=== PATIENT | male | born 1970 | race Caucasian/White ===

== ENCOUNTER 2016-07-25 08:06 | Emergency (ER) | payer MEDICARE, OTHER ==
[~2016-07-25 08:06] MED LIST: ALBUTEROL IN200 PUFF INH; BACITRACIN TP; BREO ELLIPTA 11 EACH INH; CALCIUM + VITA1 EACH PO; CEFDINIR300 MG PO; CELEXA20 MG PO; CHILDRENS CHEWA81 MG PO; DIABETA5 MG PO; DULCOLAX5 MG PO; ENULOSE10 GM/15 M PO; FLAGYL500 MG PO; FLONASE 0.05% N16 GM; INVOKAMET 150-1 EACH PO; NEURONTIN400 MG PO; NICODERM 21MG PA1 EA TD; PRAVASTATIN SOD10 MG PO; PRILOSEC OTC20 MG PO; PROZAC20 MG PO; TRAZODONE HCL100 MG PO; VISTARIL50 MG PO; ZESTRIL5 MG PO
== END 2016-07-25 09:00 | disposition left against medical advice (07) ==
LOC: ER 08:06
DX: L03.114 Cellulitis of left upper limb (principal); L03.113 Cellulitis of right upper limb; F79 Unspecified intellectual disabilities; E11.9 Type 2 diabetes mellitus without complications; Z86.14 Personal history of Methicillin resistant Staphylococcus aureus infection; Z79.899 Other long term (current) drug therapy
CPT/HCPCS: 99283

== ENCOUNTER 2016-10-11 11:10 | Emergency (ER) | payer MEDICARE, OTHER ==
[2016-10-11 12:20] LABS: BASO % 0.4 % (0.2-1.2); EOS # 0.1 10_X3_uL (0.0-0.5); EOS % 1.8 % (0.8-7.0); GRAN # 3.7 10_X3_uL (1.8-5.4); GRAN % 65.2 % (34.0-67.9); HEMATOCRIT 40.8 % (40-51); HEMOGLOBIN 14.7 g/dL (13.7-17.5); LYMPH # 1.4 10_X3_uL (1.3-3.6); LYMPH % 24.1 % (21.8-53.1); MEAN CORPUSCULAR HEMOGLOBIN 35.4 pg (27.0-33.0); MEAN CORPUSCULAR VOLUME 98.3 fL (79-92); MEAN PLATELET VOLUME 11.6 fl (7.5-11.5); MONO # 0.5 10_X3_uL (0.3-0.8); MONO % 8.5 % (5.3-12.2); PLATELET COUNT 36 x10_3/uL (163-337); RED BLOOD COUNT 4.15 x10_6/uL (4.6-6.1); RED CELL DISTRIBUTION WIDTH 13.7 % (11.6-14.4); WHITE BLOOD COUNT 5.7 x10_3/uL (4.2-9.1)
[2016-10-11 12:25] LABS: BLOOD UREA NITROGEN 6 mg/dL (7-18); CALCIUM 8.4 mg/dL (8.7-10.7); CARBON DIOXIDE 25 mmol/L (21-32); CREATININE 0.5 mg/dL (0.6-1.3); GLUCOSE,RANDOM 319 mg/dL (70-99); POTASSIUM 4.1 mmol/L (3.5-5.1); SODIUM 136 mmol/L (136-145)
== END 2016-10-11 13:25 | disposition home or self-care (01) ==
LOC: ER 11:10
PROVIDERS: Emergency Medicine
DX: R73.9 Hyperglycemia, unspecified (principal); E11.9 Type 2 diabetes mellitus without complications; I10 Essential (primary) hypertension; Z86.14 Personal history of Methicillin resistant Staphylococcus aureus infection; F17.210 Nicotine dependence, cigarettes, uncomplicated; Z79.899 Other long term (current) drug therapy
CPT/HCPCS: 36415; 80048; 82962; 85025; 99283

== ENCOUNTER 2016-10-13 08:21 | Emergency (ER) | payer MEDICARE, OTHER | END 2016-10-13 09:17 | disposition home or self-care (01) | LOC: ER 08:21 | DX: E11.9 Type 2 diabetes mellitus without complications (principal); Z76.89 Persons encountering health services in other specified circumstances; F17.210 Nicotine dependence, cigarettes, uncomplicated | CPT/HCPCS: 99282; 99283 ==

== ENCOUNTER 2016-10-18 09:25 | Emergency (ER) | payer MEDICARE, OTHER | END 2016-10-18 10:55 | disposition home or self-care (01) | LOC: ER 09:25 | DX: S51.002A Unspecified open wound of left elbow, initial encounter (principal); S61.401A Unspecified open wound of right hand, initial encounter; L03.113 Cellulitis of right upper limb; E11.9 Type 2 diabetes mellitus without complications; I10 Essential (primary) hypertension; F17.210 Nicotine dependence, cigarettes, uncomplicated | CPT/HCPCS: 96372; 99070; 99282-25; 99283 ==

== ENCOUNTER 2016-11-15 08:40 | Emergency (ER) | payer MEDICARE, OTHER | END 2016-11-15 10:23 | disposition home or self-care (01) | LOC: ER 08:40 | DX: S40.012A Contusion of left shoulder, initial encounter (principal); S13.4XXA Sprain of ligaments of cervical spine, initial encounter; W19.XXXA Unspecified fall, initial encounter; Y92.828 Other wilderness area as the place of occurrence of the external cause; E11.9 Type 2 diabetes mellitus without complications; I10 Essential (primary) hypertension; Z79.4 Long term (current) use of insulin; Z79.899 Other long term (current) drug therapy | CPT/HCPCS: 72040; 73030; 96372; 99283; 99283-25 ==

== ENCOUNTER 2016-11-18 09:14 | Emergency (ER) | payer MEDICARE, OTHER ==
[2016-11-18 10:45] LABS: BASO % 0.2 % (0.2-1.2); EOS # 0.1 10_X3_uL (0.0-0.5); EOS % 1.6 % (0.8-7.0); GRAN # 3.9 10_X3_uL (1.8-5.4); GRAN % 70.8 % (34.0-67.9); HEMATOCRIT 40.9 % (40-51); HEMOGLOBIN 14.8 g/dL (13.7-17.5); LYMPH % 17.8 % (21.8-53.1); MEAN CORPUSCULAR HEMOGLOBIN 35.7 pg (27.0-33.0); MEAN CORPUSCULAR HGB CONC 36.2 g/dL (32.0-36.0); MEAN CORPUSCULAR VOLUME 98.8 fL (79-92); MEAN PLATELET VOLUME 11.8 fl (7.5-11.5); MONO # 0.5 10_X3_uL (0.3-0.8); MONO % 9.6 % (5.3-12.2); PLATELET COUNT 37 x10_3/uL (163-337); RED BLOOD COUNT 4.14 x10_6/uL (4.6-6.1); RED CELL DISTRIBUTION WIDTH 14.8 % (11.6-14.4); WHITE BLOOD COUNT 5.5 x10_3/uL (4.2-9.1)
[2016-11-18 10:54] LABS: URINE BILIRUBIN 2+ (NEGATIVE); URINE BLOOD 3+ (NEGATIVE); URINE GLUCOSE (UA) 100 mg/dL (NORMAL); URINE KETONE TRACE (NEGATIVE); URINE LEUKOCYTE ESTERASE TRACE (NEGATIVE); URINE NITRATE POSITIVE (NEGATIVE); URINE PROTEIN 1+ (NEGATIVE)
[2016-11-18 10:55] LABS: ALKALINE PHOSPHATASE 69 U/L (50-136); ALT/SGPT 75 U/L (7.53-40.17); AST/SGOT 110 U/L (6.66-35.34); BILIRUBIN,TOTAL 3.04 mg/dL (0.0-1.0); BLOOD UREA NITROGEN 8 mg/dL (7-18); CALCIUM 8.4 mg/dL (8.7-10.7); CARBON DIOXIDE 22 mmol/L (21-32); CREATINE KINASE 243 U/L (35-232); CREATININE 0.6 mg/dL (0.6-1.3); GLUCOSE,RANDOM 229 mg/dL (70-99); LIPASE 44 U/L (6.75-60.75); POTASSIUM 3.8 mmol/L (3.5-5.1); SODIUM 137 mmol/L (136-145); TOTAL PROTEIN 7.1 gm/dL (6.4-8.2)
[2016-11-18 10:56] LABS: CKMB 3.9 ng/ml (0.0-5.0)
[2016-11-18 11:03] LABS: THYROID STIMULATING HORMONE 2.61 uIU/mL (0.34-4.82)
[2016-11-18 11:05] LABS: FREE T4 1.56 ng/dL (0.93-1.7)
[2016-11-18 11:11] LABS: URINE BACTERIA 1+ (NONE SEEN); URINE MUCUS 1+; URINE SQUAMOUS EPITHELIAL CELL 0-10 /[HPF] (NONE SEEN)
[2016-11-18 11:12] LABS: URINE AMORPHOUS SEDIMENT 1+; URINE YEAST 1+ (NONE SEEN)
== END 2016-11-18 12:27 | disposition other institution (70) ==
LOC: ER 09:14
PROVIDERS: Emergency Medicine
DX: N39.0 Urinary tract infection, site not specified (principal); B37.9 Candidiasis, unspecified; F30.9 Manic episode, unspecified; R79.89 Other specified abnormal findings of blood chemistry; G47.00 Insomnia, unspecified; R11.2 Nausea with vomiting, unspecified; E78.5 Hyperlipidemia, unspecified; E11.9 Type 2 diabetes mellitus without complications; I10 Essential (primary) hypertension; F17.210 Nicotine dependence, cigarettes, uncomplicated; Z79.899 Other long term (current) drug therapy
CPT/HCPCS: 36415; 51701; 80053; 81001; 82550; 82553; 82962; 83690; 84439; 84443; 85025; 87086; 93005; 99284; 99284-25